=== PATIENT | male | born 1950 | race Caucasian/White ===

== ENCOUNTER 2019-11-27 11:25 | Inpatient (IN) | payer MEDICARE, OTHER ==
[~2019-11-27] VITALS: Ht 190.5 cm; Wt 111.7 kg
[~2019-11-27 11:25] MED LIST: CITA40TA12 PO; HYDR-3240 PO; OMEP-110 PO; RIVA20TA PO; TRIA1CAP3 PO
--- NOTE | 2019-11-27 11:50 | NUR ---
PT PRESENTING TO ER FOR SUDDEN PAIN TO RIGHT SIDE BACK RADIATING AROUND TO STOMACH TODAY. NO N/V/D REPORTED. CONNECTED TO ALL MONITORING, TACHY IRRAGGULAR HR, HTN AND SATS BELOW 95% NOTED. PAIN 8/10 AT THIS TIME. ORDERS RECEIVED. CALL LIGHT WITHIN REACH
[2019-11-27] MEDS ORDERED: ONDANSETRON 2MG/ML, 2ML IVPush ONE (12:00)
[2019-11-27] MEDS ORDERED: HYDROmorphone 2 MG/ML, 1ML IVPush PRN (12:00)
[2019-11-27] MEDS ORDERED: HYDROmorphone 1 MG/ML, 1ML INJ ONE (12:00)
[2019-11-27] MEDS ORDERED: SODIUM CHLORIDE FLUSH 10ML SYR IVF ONE (12:00)
[2019-11-27] MEDS ORDERED: SODIUM CHLORIDE 0.9% 1,000ML IVBOLUS ONE (12:00)
[2019-11-27] MEDS ORDERED: ONDANSETRON 2MG/ML, 2ML ONE (12:00)
[2019-11-27 12:11] LABS: BASOPHILS # (AUTO) 0.03 x10^3/uL (0-0.1); BASOPHILS % (AUTO) 0 % (0-1); EOSINOPHILS # (AUTO) 0.05 x10^3/uL (0-0.4); EOSINOPHILS % (AUTO) 1 % (1-7); LYMPHOCYTES # (AUTO) 1.53 x10^3/uL (1-3.4); LYMPHOCYTES % (AUTO) 14 % (22-44); MD NO; MEAN CORPUSCULAR HEMOGLOBIN 33.2 pg (27.5-34.5); MEAN CORPUSCULAR VOLUME 100.5 fL (81-97); MEAN PLATELET VOLUME 7.1 fL (7.4-10.4); MONOCYTES # (AUTO) 0.92 x10^3/uL (0.2-0.8); MONOCYTES % (AUTO) 9 % (2-9); NEUTROPHILS # (AUTO) 8.29 x10^3/uL (1.8-6.8); NEUTROPHILS % (AUTO) 77 % (42-75); PLATELET COUNT 331 x10^3/uL (130-400); RED BLOOD COUNT 4.96 x10^6/uL (4.38-5.82)
--- NOTE | 2019-11-27 12:15 | NUR ---
IV PLACED, FLUIDS RUNNING, LABS DRAWN, PT MEDICATED PER MAR FOR PAIN. UA COLLECTED AND SENT TO LAB
[2019-11-27] MEDS ORDERED: METOPROLOL 1 MG/ML, 5ML ONE ×3 (12:16→13:57)
[2019-11-27] MEDS: METOPROLOL 1 MG/ML, 5ML IVPush PRN ×3 (12:17→14:07)
[2019-11-27 12:18] LABS: INTERNATIONAL NORMALIZED RATIO 0.98 (0.93-1.1); PROTHROMBIN TIME 10.4 Seconds (9.6-11.5)
[2019-11-27 12:21] LABS: ALANINE AMINOTRANSFERASE 15 U/L (12-78); ALBUMIN 3.1 g/dL (3.4-5.0); ANION GAP 11 mmol/L (5-15); CALCIUM 8.8 mg/dL (8.5-10.1); CHLORIDE 106 mmol/L (98-107)
--- NOTE | 2019-11-27 12:23 | NUR ---
PT FOUND TO BE IN AFIB, LOPRESSOR GIVEN, PT TOLERATED WELL.
[2019-11-27 12:26] LABS: ALKALINE PHOSPHATASE 65 U/L (45-117); BILIRUBIN,TOTAL 0.8 mg/dL (0.2-1.0); CREATININE 1.06 mg/dL (0.7-1.3); MICROSCOPIC NOT IND; TOTAL PROTEIN 8.4 g/dL (6.4-8.2); TROPONIN I < 0.015 ng/mL (0.000-0.045)
[2019-11-27 12:31] LABS: CULTURE INDICATED? NO
--- NOTE | 2019-11-27 12:46 | NUR ---
TAKEN TO CT
[2019-11-27] MEDS ORDERED: OMNIPAQUE 350 MG/ML, 100ML BOTTLE ONE ×2 (13:04→20:06)
--- NOTE | 2019-11-27 13:11 | NUR ---
BACK FROM CT, VSS. HR DECREASED RANGING BETWEEN 105-125. PAIN DECREASED TO 3/10. FAMILY AT BEDSIDE. CALL LIGHT WITHIN REACH. AWAITING RESULTS AT THIS TIME
--- NOTE | 2019-11-27 13:18 | NUR ---
ALL RESULTS BACK AT THIS TIME, CHART UP FOR RECHECK
--- NOTE | 2019-11-27 13:40 | NUR ---
GI PAGED @[phone]. CALL RETURNED @[phone].
[2019-11-27] MEDS ORDERED: PANT40TA5 PO (13:43)
[2019-11-27] MEDS ORDERED: VENL75CA6 PO (13:43)
--- NOTE | 2019-11-27 13:46 | NUR ---
SECOND DOSE LOPRESSOR GIVEN PER INSTRUCTIONS. PT TO BE ADMITTED TO [facility]. PANTS, SHOES, SHIRT, MEDS BAGGED UP AND LABLED. WALLET AND KEYS GIVEN TO DAUGHTER PER PT REQUEST
--- NOTE | 2019-11-27 15:17 | NUR ---
HOSPITALIST AT BEDSIDE FOR ADMIT ASSESSMENT
[2019-11-27] MEDS ORDERED: METOPROLOL SUCCINATE 25 MG TAB.ER.24H PO SCH (16:00)
[2019-11-27] MEDS ORDERED: BISACODYL 10 MG SUPP PR PRN (16:00)
[2019-11-27] MEDS ORDERED: POLYETHYLENE GLYCOL 17 GM PACKET PO PRN (16:00)
[2019-11-27] MEDS ORDERED: DOCUSATE 100 MG CAPSULE PO PRN (16:00)
[2019-11-27] MEDS ORDERED: morphine SULFATE 10 MG/ML, 1ML IVPush PRN (16:00)
[2019-11-27] MEDS ORDERED: OXYcodone IR 5MG TABLET PO PRN (16:00)
[2019-11-27] MEDS ORDERED: METOPROLOL 1 MG/ML, 5ML IVPush ONE (16:00)
[2019-11-27] MEDS ORDERED: ONDANSETRON ODT 4 MG PO PRN (16:00)
--- NOTE | 2019-11-27 16:19 | NUR ---
REPORT GIVEN TO SERGEY SAENZ, PT READY FOR TRANSPORT UP TO FLOOR
[2019-11-27 17:20] VITALS: BP 117/57
[2019-11-27] MEDS ORDERED: SODIUM CHLORIDE 0.9%, 250ML IVBOLUS ONE (19:00)
[2019-11-27 19:40] VITALS: BP 128/71
[2019-11-27] MEDS: SODIUM CHLORIDE 0.9% 1,000 ML IV SCH (20:08)
[2019-11-27] MEDS ORDERED: PANTOPROZOLE 40MG TABLET PO SCH (21:00)
[2019-11-28 00:57] VITALS: BP 124/73
[2019-11-28] MEDS: SODIUM CHLORIDE 0.9% 1,000 ML IV SCH ×2 (00:58→08:42)
[2019-11-28 02:20] LABS: MICROSCOPIC NOT IND
[2019-11-28 02:31] LABS: CULTURE INDICATED? NO
[2019-11-28 05:08] LABS: BASOPHILS # (AUTO) 0.05 x10^3/uL (0-0.1); BASOPHILS % (AUTO) 1 % (0-1); EOSINOPHILS # (AUTO) 0.13 x10^3/uL (0-0.4); EOSINOPHILS % (AUTO) 2 % (1-7); LYMPHOCYTES # (AUTO) 1.82 x10^3/uL (1-3.4); LYMPHOCYTES % (AUTO) 23 % (22-44); MD NO; MEAN CORPUSCULAR HEMOGLOBIN 33.4 pg (27.5-34.5); MEAN CORPUSCULAR HGB CONC 33.2 g/dL (33.2-36.2); MEAN CORPUSCULAR VOLUME 100.8 fL (81-97); MEAN PLATELET VOLUME 7.4 fL (7.4-10.4); MONOCYTES # (AUTO) 0.98 x10^3/uL (0.2-0.8); MONOCYTES % (AUTO) 12 % (2-9); NEUTROPHILS # (AUTO) 4.92 x10^3/uL (1.8-6.8); NEUTROPHILS % (AUTO) 62 % (42-75); PLATELET COUNT 257 x10^3/uL (130-400); RED BLOOD COUNT 4.32 x10^6/uL (4.38-5.82); RED CELL DISTRIBUTION WIDTH 14.4 % (9.4-14.8)
[2019-11-28 05:16] LABS: ALBUMIN 2.5 g/dL (3.4-5.0); ANION GAP 6 mmol/L (5-15); CHLORIDE 107 mmol/L (98-107)
[2019-11-28 05:19] LABS: ALANINE AMINOTRANSFERASE 11 U/L (12-78); ALKALINE PHOSPHATASE 54 U/L (45-117); BILIRUBIN,TOTAL 0.8 mg/dL (0.2-1.0); CREATININE 1.07 mg/dL (0.7-1.3); TOTAL PROTEIN 6.8 g/dL (6.4-8.2)
[2019-11-28 06:08] VITALS: BP 136/69
[2019-11-28] MEDS: METOPROLOL SUCCINATE 25 MG TAB.ER.24H PO SCH (06:10)
[2019-11-28 06:52] VITALS: BP 134/65
[2019-11-28] MEDS: VENLAFAXINE 75 MG CAP ER PO SCH (08:42)
[2019-11-28] MEDS: PANTOPROZOLE 40MG TABLET PO SCH (08:42)
[2019-11-28] MEDS: Enoxaparin 1 mg/kg protocol SQ SCH ×2 (08:42→21:00)
[2019-11-28] MEDS: ENOXAPARIN 120MG/0.8ML SQ SCH ×2 (08:42→20:55)
[2019-11-28] MEDS: TRIAMTERENE/HCTZ 75/50MG TABLET PO SCH (08:42)
[2019-11-28] MEDS ORDERED: TRIAMTERENE/HCTZ 75/50MG TABLET PO SCH (09:00)
[2019-11-28] MEDS ORDERED: RIVAROXABAN 20 MG TABLET PO SCH (09:00)
[2019-11-28 12:29] VITALS: BP 149/63
[2019-11-28 19:44] VITALS: BP 144/79
[2019-11-29 01:06] VITALS: BP 137/72
[2019-11-29 05:55] LABS: BASOPHILS # (AUTO) 0.03 x10^3/uL (0-0.1); BASOPHILS % (AUTO) 0 % (0-1); EOSINOPHILS # (AUTO) 0.09 x10^3/uL (0-0.4); EOSINOPHILS % (AUTO) 1 % (1-7); LYMPHOCYTES # (AUTO) 1.78 x10^3/uL (1-3.4); LYMPHOCYTES % (AUTO) 21 % (22-44); MD NO; MEAN CORPUSCULAR HEMOGLOBIN 33.5 pg (27.5-34.5); MEAN CORPUSCULAR HGB CONC 33.6 g/dL (33.2-36.2); MEAN CORPUSCULAR VOLUME 99.7 fL (81-97); MEAN PLATELET VOLUME 7.9 fL (7.4-10.4); MONOCYTES # (AUTO) 0.89 x10^3/uL (0.2-0.8); MONOCYTES % (AUTO) 10 % (2-9); NEUTROPHILS # (AUTO) 5.72 x10^3/uL (1.8-6.8); NEUTROPHILS % (AUTO) 67 % (42-75); PLATELET COUNT 251 x10^3/uL (130-400); RED BLOOD COUNT 4.41 x10^6/uL (4.38-5.82)
[2019-11-29 06:06] LABS: ANION GAP 6 mmol/L (5-15); CALCIUM 8.5 mg/dL (8.5-10.1); CHLORIDE 104 mmol/L (98-107); CREATININE 0.83 mg/dL (0.7-1.3)
[2019-11-29 06:28] VITALS: BP 126/62
[2019-11-29] MEDS: METOPROLOL SUCCINATE 25 MG TAB.ER.24H PO SCH (06:36)
[2019-11-29] MEDS: Enoxaparin 1 mg/kg protocol SQ SCH ×2 (07:57→09:00)
[2019-11-29] MEDS: PANTOPROZOLE 40MG TABLET PO SCH (08:22)
[2019-11-29] MEDS: VENLAFAXINE 75 MG CAP ER PO SCH (08:22)
[2019-11-29] MEDS: TRIAMTERENE/HCTZ 75/50MG TABLET PO SCH (08:22)
[2019-11-29 12:28] VITALS: BP 131/67
[2019-11-29 14:36] LABS: CHOL/HDL RATIO 3.3
[2019-11-29] MEDS: METOPROLOL TARTRATE 25 MG TABLET PO SCH ×2 (15:05→21:05)
[2019-11-29 18:40] VITALS: BP 153/72
[2019-11-29] MEDS: ATORVASTATIN 20 MG TABLET PO SCH (21:05)
[2019-11-29] MEDS: ENOXAPARIN 120MG/0.8ML SQ SCH (21:06)
[2019-11-30] VITALS (8 sets, daily range): BP systolic 119–149; BP diastolic 53–79
[2019-11-30] MEDS: METOPROLOL TARTRATE 25 MG TABLET PO SCH ×4 (02:11→20:49)
[2019-11-30 06:43] LABS: BASOPHILS # (AUTO) 0.03 x10^3/uL (0-0.1); BASOPHILS % (AUTO) 0 % (0-1); EOSINOPHILS % (AUTO) 1 % (1-7); LYMPHOCYTES % (AUTO) 22 % (22-44); MD NO; MEAN CORPUSCULAR HEMOGLOBIN 33.1 pg (27.5-34.5); MEAN CORPUSCULAR HGB CONC 32.8 g/dL (33.2-36.2); MEAN CORPUSCULAR VOLUME 100.9 fL (81-97); MEAN PLATELET VOLUME 8.1 fL (7.4-10.4); MONOCYTES % (AUTO) 12 % (2-9); NEUTROPHILS # (AUTO) 5.46 x10^3/uL (1.8-6.8); NEUTROPHILS % (AUTO) 64 % (42-75); PLATELET COUNT 264 x10^3/uL (130-400); RED BLOOD COUNT 4.74 x10^6/uL (4.38-5.82); RED CELL DISTRIBUTION WIDTH 13.7 % (9.4-14.8)
[2019-11-30 06:53] LABS: ANION GAP 7 mmol/L (5-15); CALCIUM 8.8 mg/dL (8.5-10.1); CHLORIDE 103 mmol/L (98-107); CREATININE 0.87 mg/dL (0.7-1.3)
[2019-11-30] MEDS: Enoxaparin 1 mg/kg protocol SQ SCH ×2 (07:16→08:46)
[2019-11-30] MEDS: PANTOPROZOLE 40MG TABLET PO SCH (08:46)
[2019-11-30] MEDS: VENLAFAXINE 75 MG CAP ER PO SCH (08:46)
[2019-11-30] MEDS: TRIAMTERENE/HCTZ 75/50MG TABLET PO SCH (08:46)
[2019-11-30] MEDS: ENOXAPARIN 120MG/0.8ML SQ SCH (08:46)
[2019-11-30] MEDS ORDERED: LISINOPRIL 5 MG TABLET PO SCH (10:30)
[2019-11-30] MEDS: ATORVASTATIN 20 MG TABLET PO SCH (20:49)
[2019-12-01 00:59] VITALS: BP 126/75
[2019-12-01 02:53] VITALS: BP 127/68
[2019-12-01] MEDS: METOPROLOL TARTRATE 25 MG TABLET PO SCH ×2 (02:54→08:11)
[2019-12-01 07:58] VITALS: BP 126/80
[2019-12-01] MEDS: TRIAMTERENE/HCTZ 75/50MG TABLET PO SCH (08:12)
[2019-12-01] MEDS: VENLAFAXINE 75 MG CAP ER PO SCH (08:12)
[2019-12-01] MEDS: PANTOPROZOLE 40MG TABLET PO SCH (08:12)
[2019-12-01] MEDS ORDERED: LISINOPRIL 10 MG TABLET PO SCH (09:00)
[2019-12-01] MEDS ORDERED: FENTANYL PF 100 MCG/2ML ONE (11:10)
[2019-12-01] MEDS ORDERED: FLUMAZENIL 0.1 MG/1 ML, 5ML ONE (11:11)
[2019-12-01] MEDS ORDERED: MIDAZOLAM 1 MG/ML, 5ML ONE ×2 (11:11→11:43)
[2019-12-01] MEDS ORDERED: NALOXONE 1 MG/ML, 2ML ONE (11:11)
[2019-12-01] MEDS ORDERED: LIDOCAINE 1%, 10ML ONE (11:50)
[2019-12-01 13:28] VITALS: BP 115/65
[2019-12-01] MEDS ORDERED: METO-93 PO (15:01)
[2019-12-01] MEDS ORDERED: ATOR20TA37 PO (15:01)
[2019-12-01] MEDS ORDERED: LISI-167 PO (15:01)
[2019-12-01] MEDS ORDERED: METOPROLOL SUCCINATE 50 MG TAB.ER.24H PO SCH ×2 (21:00)
== END 2019-12-01 18:20 | disposition home or self-care (01) | DRG 436 ==
LOC: ED 13:33 → EDIP 14:03 → 4EST 16:48
PROVIDERS: ADMIT Family Medicine; ATTEND Family Medicine
PROC: 0FB13ZX Excision of Right Lobe Liver, Percutaneous Approach, Diagnostic (ICD-10-PCS; principal; 2019-12-01)
DX: C78.7 Secondary malignant neoplasm of liver and intrahepatic bile duct (principal); B19.10 Unspecified viral hepatitis B without hepatic coma; I48.20 Chronic atrial fibrillation, unspecified; E44.1 Mild protein-calorie malnutrition; D68.69 Other thrombophilia; I42.9 Cardiomyopathy, unspecified; I48.91 Unspecified atrial fibrillation; C26.9 Malignant neoplasm of ill-defined sites within the digestive system; I10 Essential (primary) hypertension; I71.2 Thoracic aortic aneurysm, without rupture; E66.9 Obesity, unspecified; Z68.30 Body mass index [BMI] 30.0-30.9, adult; E86.0 Dehydration; F17.210 Nicotine dependence, cigarettes, uncomplicated; F32.9 Major depressive disorder, single episode, unspecified; F41.9 Anxiety disorder, unspecified; K59.09 Other constipation; Z79.01 Long term (current) use of anticoagulants; Z79.899 Other long term (current) drug therapy; Z86.718 Personal history of other venous thrombosis and embolism
CPT/HCPCS: 36415; 47000; 71045; 71275; 74177; 76942; 80048; 80053; 80061; 81003; 82105; 82378; 83605; 83690; 83735; 84443; 84484; 85025; 85610; 86301; 86704; 86706; 86803; 87340; 88307; 88341; 88342; 93005; 93306; 96361; 96374; 96375; 96376; 99156; 99157; G0378; J1170; J1650; J2250; J2405; J3010; Q9967; J2310; J7030; J7050

== ENCOUNTER 2019-12-23 12:13 | Outpatient (CLI) | payer MEDICARE ==
[~2019-12-23 12:13] MED LIST changes: +ATOR20TA37 PO; +LISI-167 PO; +METO-93 PO; +PANT40TA5 PO; +VENL75CA6 PO
== END 2019-12-23 23:59 | disposition home or self-care (01) ==
LOC: PETCFH 12:13
PROVIDERS: ATTEND Family Medicine
DX: R16.0 Hepatomegaly, not elsewhere classified (principal); I25.10 Atherosclerotic heart disease of native coronary artery without angina pectoris; K42.9 Umbilical hernia without obstruction or gangrene
CPT/HCPCS: 78815; A9552

== ENCOUNTER 2020-02-08 13:13 | Outpatient (CLI) | payer MEDICARE ==
[2020-02-08] MEDS ORDERED: OMNIPAQUE 350 MG/ML, 100ML BOTTLE ONE (14:46)
== END 2020-02-08 23:59 | disposition home or self-care (01) ==
LOC: CFH 13:13
PROVIDERS: ATTEND Surgery
DX: C22.0 Liver cell carcinoma (principal); N28.1 Cyst of kidney, acquired; K42.9 Umbilical hernia without obstruction or gangrene; R16.0 Hepatomegaly, not elsewhere classified
CPT/HCPCS: 74170; 82565; Q9967

== ENCOUNTER 2020-04-16 23:56 | Emergency (ER) | payer MEDICARE ==
[~2020-04-16] VITALS: Ht 182.9 cm; Wt 105.0 kg
[2020-04-17 00:06] VITALS: BP 95/52
[2020-04-17] MEDS ORDERED: SODIUM CHLORIDE 0.9% 1,000ML IVBOLUS ONE (00:30)
[2020-04-17] MEDS ORDERED: SODIUM CHLORIDE FLUSH 10ML SYR IVF ONE (00:30)
[2020-04-17] MEDS ORDERED: DILTIAZEM 125 MG in SODIUM CHLORIDE 0.9% 100 ML IV SCH (00:31)
[2020-04-17 00:49] LABS: ALANINE AMINOTRANSFERASE 125 U/L (12-78); ALBUMIN 2.7 g/dL (3.4-5.0); ANION GAP 23 mmol/L (5-15); CHLORIDE 98 mmol/L (98-107); CREATININE 2.12 mg/dL (0.7-1.3)
[2020-04-17 00:54] LABS: ALKALINE PHOSPHATASE 176 U/L (45-117); BILIRUBIN,TOTAL 3.3 mg/dL (0.2-1.0); T4 (THYROXINE) 5.6 mcg/dL (4.5-12.1); TOTAL PROTEIN 8.1 g/dL (6.4-8.2); TROPONIN I 0.095 ng/mL (0.000-0.045)
[2020-04-17] MEDS ORDERED: HEPARIN 5,000 UNITS/ML, 1ML IV PRN (01:00)
[2020-04-17] MEDS ORDERED: HEPARIN 5,000 UNITS/ML, 1ML IV ONE (01:00)
[2020-04-17] MEDS ORDERED: DILTIAZEM 5 MG/ML, 5ML IV ONE (01:00)
[2020-04-17] MEDS ORDERED: HEPARIN 25,000 UNITS/250ML PMX 250 ML IV PRN (01:00)
[2020-04-17] MEDS ORDERED: HEPARIN 5,000 UNITS/ML, 1ML ONE (01:02)
[2020-04-17 02:03] LABS: INTERNATIONAL NORMALIZED RATIO 2.67 (0.93-1.1); PROTHROMBIN TIME 28.6 Seconds (9.6-11.5)
[2020-04-17] MEDS ORDERED: NOREPINEPHRINE 8 MG in SODIUM CHLORIDE 0.9% 242 ML IV PRN (02:03)
[2020-04-17] MEDS ORDERED: VASOPRESSIN 20 UNIT in SODIUM CHLORIDE 0.9% 99 ML IV PRN (02:03)
[2020-04-17] MEDS ORDERED: PROPOFOL 100 ML IV PRN (02:03)
[2020-04-17 02:06] LABS: PARTIAL THROMBOPLASTIN TIME > 153 Seconds (25-31)
[2020-04-17] MEDS ORDERED: LIDOCAINE-MPF 1%, 2ML ENDO PRN ×2 (02:30→05:00)
[2020-04-17] MEDS ORDERED: AMIODARONE 150 MG in DEXTROSE 5% 100 ML IV ONE (02:30)
[2020-04-17] MEDS ORDERED: PHARMACY MAY ADJ FOR RENAL FX MC SCH (02:30)
[2020-04-17] MEDS ORDERED: VANCOMYCIN PER PHARMACY MC PRN ×2 (02:30→05:00)
[2020-04-17] MEDS ORDERED: ONDANSETRON 2MG/ML, 2ML IV PRN (02:30)
[2020-04-17] MEDS ORDERED: GLUCAGON 1 MG IM PRN (02:30)
[2020-04-17] MEDS ORDERED: DEXTROSE 4 GM TAB.CHEW PO PRN (02:30)
[2020-04-17] MEDS ORDERED: SODIUM CHLORIDE 0.9% 1,000 ML IV SCH (02:30)
[2020-04-17] MEDS ORDERED: AMIODARONE 450 MG in DEXTROSE 5% 241 ML IV PRN ×2 (02:30→05:00)
[2020-04-17] MEDS ORDERED: PIPERACILLIN/TAZO/PMX 3.375GM 50 ML IV SCH ×2 (02:30→05:00)
[2020-04-17] MEDS ORDERED: DEXTROSE 50%, 50ML SYRINGE IVPush PRN ×2 (02:30→05:00)
[2020-04-17] MEDS ORDERED: FILTER 0.22 MICRON IV PRN ×2 (03:00→05:00)
[2020-04-17] MEDS ORDERED: PHARMACOKINETIC MONITORING MC PRN (04:30)
--- NOTE | 2020-04-17 05:22 | NUR ---
MULTIPLE CHARTS ON PT PT ALSO HAS CHART [phone]. PT BROUGHT TO ER BY JESUS ALBERTO , PT CALLED 911 WITH INCREASED DIFFICULTY BREATHING AND WEAKNESS AND INCREASED LEFT LEG SWELLING. JESUS ALBERTO STATED PT WAS SATING IN THE 70'S ON ROOM AIR AT CONTACT.
--- NOTE | 2020-04-17 05:26 | NUR ---
UNABLE TO DO PT MED REC DUE TO PT UNABLE TO COMUNICATE AND PT FAMILY UNAWAR OF PT'S MEDS.
[2020-04-17] MEDS ORDERED: VANCOMYCIN 2,000 MG in SODIUM CHLORIDE 0.9% 500 ML IV SCH (05:30)
[2020-04-17] MEDS ORDERED: SODIUM CHLORIDE FLUSH 10ML SYR IVF SCH (09:00)
[2020-04-17] MEDS ORDERED: PANTOPRAZOLE 40 MG IV IV SCH (09:00)
== END 2020-04-17 01:03 ==
LOC: EDBD → MERGE 23:56 → ED 04-17 00:52
DX: A41.9 Sepsis, unspecified organism (principal); R65.21 Severe sepsis with septic shock; J96.00 Acute respiratory failure, unspecified whether with hypoxia or hypercapnia; N17.9 Acute kidney failure, unspecified; K72.00 Acute and subacute hepatic failure without coma; I48.20 Chronic atrial fibrillation, unspecified; E87.2 Acidosis; I71.2 Thoracic aortic aneurysm, without rupture; I48.92 Unspecified atrial flutter; I21.4 Non-ST elevation (NSTEMI) myocardial infarction; J15.9 Unspecified bacterial pneumonia; I26.09 Other pulmonary embolism with acute cor pulmonale; I82.412 Acute embolism and thrombosis of left femoral vein; I82.432 Acute embolism and thrombosis of left popliteal vein; D72.829 Elevated white blood cell count, unspecified; R94.5 Abnormal results of liver function studies
CPT/HCPCS: 31500; 36556; 36600; 71045; 80053; 82803; 83605; 83735; 83880; 84145; 84436; 84443; 84484; 85520; 85610; 85730; 87040; 87070; 87205; 93005; 93971; 96365; 96375; 99291; J1644; J2704; J7030; 94002